=== PATIENT | male | born 1995 | race Caucasian/White ===

== ENCOUNTER 2018-06-27 02:36 | Emergency (ER) | payer OTHER ==
[~2018-06-27] VITALS: Ht 170.2 cm; Wt 63.8 kg
[~2018-06-27 02:36] MED LIST: HMLI SC; INSDGI SC
[2018-06-27 02:41] VITALS: TEMP 36.7; Ht 170.2 cm; Wt 63.8 kg
[2018-06-27] MEDS ORDERED: INSULIN 70% ASPART PROTAMINE/30% ASPART SC ONE (03:15)
[2018-06-27] MEDS ORDERED: INSU100I23 SQ (03:31)
[2018-06-27] MEDS ORDERED: HMLIS SQ (03:31)
[2018-06-27 04:07] VITALS: BP 154/100; PULSE 109; O2SAT 96
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
== END 2018-06-27 04:06 | disposition home or self-care (01) ==
LOC: C.EDB 02:39 → MERGE 02:39 → C.EDB 04:06
DX: T76.11XA Adult physical abuse, suspected, initial encounter (principal); S69.92XA Unspecified injury of left wrist, hand and finger(s), initial encounter; W50.0XXA Accidental hit or strike by another person, initial encounter; E10.65 Type 1 diabetes mellitus with hyperglycemia; R40.2412 Glasgow coma scale score 13-15, at arrival to emergency department; Z79.4 Long term (current) use of insulin

== ENCOUNTER 2019-08-12 21:34 | Inpatient (IN) ==
[2019-08-12 22:53] LABS: Basophils # (auto) 0.04 K/uL (0-0.2); Basophils % (auto) 0.5 %; Eosinophils # (auto) 0.07 K/uL (0-0.5); Eosinophils % (auto) 0.8 %; Hematocrit (blood only) 43.3 % (42-52); Hemoglobin 14.3 g/dL (14.0-18.0); Immature Granulocytes # (auto) 0.04 K/uL (0.00-0.02); Immature Granulocytes % (auto) 0.5 %; Lymphocytes # (auto) 2.62 K/uL (1.2-3.4); Lymphocytes % (auto) 31.6 %; Mean Corpuscular Hemoglobin 30.8 pg (25-34); Mean Corpuscular Volume 93.1 fL (80-100); Mean Platelet Volume 10.5 fL (7.4-10.4); Monocytes # (auto) 0.64 K/uL (0.11-0.59); Monocytes % (auto) 7.7 %; Neutrophils # (auto) 4.87 K/uL (1.4-6.5); Neutrophils % (auto) 58.9 %; Platelet Count 248 K/uL (130-400); RDW Coefficient of Variation 13.5 % (11.5-14.5); RDW Standard Deviation 45.9 fL (36.4-46.3); Red Blood Count 4.65 M/uL (4.7-6.1); White Blood Count 8.28 K/uL (4.8-10.8)
[2019-08-12] MEDS ORDERED: SODIUM CHLORIDE 0.9% 1000ML 1,000 ML IV ONE ×2 (23:06→23:31)
[2019-08-12 23:30] LABS: Albumin Level 3.8 gm/dl (3.4-5.0); BUN Creatinine Ratio 15.5 (10-20); Calcium 9.3 mg/dl (8.5-10.1); Creatinine Clr Calc Pharmacy 68.4 ml/min; Est GFR (Non-African American) 61.2; Globulin 3.8 gm/dl (2.5-4.0); Total Protein 7.6 gm/dl (6.4-8.2)
[2019-08-13 00:28] LABS: iSTAT Blood Urea Nitrogen 27 mg/dl (7-18); iSTAT Carbon Dioxide 22 mEq/l (24-31); iSTAT Chloride 94 mEq/L (101-112); iSTAT Creatinine 1.2 mg/dl (0.6-1.3); iSTAT Glucose > 700 mg/dl (70-99); iSTAT Hematocrit 43 % (42-52); iSTAT Hemoglobin 14.6 g/dl (14.0-18.0); iSTAT Ionized Calcium 1.19 mmol/l (1.12-1.32); iSTAT Potassium 5.6 mEq/L (3.3-5.0); iSTAT Sodium 128 mEq/L (135-144)
[2019-08-13] MEDS ORDERED: LORazepam 1 MG/2 ML VIAL IV STA (00:41)
[2019-08-13] MEDS ORDERED: INSULIN REGULAR 250 UNITS in SODIUM CHLORIDE 0.9% 247.5 ML IV SCH (00:45)
[2019-08-13 00:59] LABS: Beta-Hydroxybutyrate 27.02 mg/dl (0.2-2.81)
--- NOTE | 2019-08-13 01:37 | Emergency Department Note ---
Entered by Anita Roca acting as a scribe for Lakeisha Samayoaer History of Present Illness General Chief complaint: Vomiting Stated complaint: VOMITING, INCREASED BATHROOM VISITS Time Seen by Provider: 08/12/19 22:44 Source: patient History of Present Illness Onset (ago): hour(s) 10 Pain Consistency: + constant Maximum Pain Intensity: 8 Current Pain Intensity: 8 Associated symptoms: + nausea/vomiting, + weakness and + other (increased urinary frequency); no fever/chills Treatments prior to arrival: none The patient is a 23 year old male with diabetes who presents to the Emergency Room with complaints of vomiting. 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 He ran out today, with his last dose taken around 14:00 today. He typically takes 12-16 units of insulin, and 26 units of Lantus at night. The patient complains of increased urination, weakness, and vomiting. He states that he did not notice any blood in his vomit, and denies fever. Home Medications Home Medications Medication Instructions Recorded Confirmed Type divalproex 500 mg PO BID 08/12/19 08/12/19 History paliperidone 6 mg PO QAM 08/12/19 08/12/19 History insulin glargine [Basaglar KwikPen 36 unit SUBCUT DAILY 08/13/19 08/13/19 History U-100 Insulin] Allergies Allergy/AdvReac Type Severity Reaction Status Date / Time No Known Allergies Allergy Unverified 08/12/19 23:58 Past Med/Surg History Medical History DM I (diabetes mellitus, type I) Surgical History No pertinent past surgical history Family History Father Hypertension Brother Type I diabetes mellitus Social History Preferred Language: Yakut Communication Ability: Effective Visual Impairment: No Limitations Hearing Ability: Normal Bromination Equipment Operator Required: No Beliefs That Will Affect Care: Hoahaoism Hoahaoism Beliefs: Jain marital status: single Current Living Situation: Alone current occupational status: student Feels Safe at Home: Yes Smoking Status: Current every day smoker Hx Alcohol Use: Yes Hx Substance Use: Yes Review of Systems See HPI for pertinent positives & negatives. and A total of 10 systems reviewed and were otherwise negative Physical Exam Vital Signs Vital Signs - 24 hr 08/12/19 21:41 08/12/19 23:35 Temperature 36.8 C Temperature Source Oral Sepsis Recent Fever Within 48 Hours No Sepsis New/Unexplained Change in Mental Status No Sepsis Action Taken by Nursing No Action Required Pulse Rate 105 H Pulse Rate [Apical] 97 H Respiratory Rate 16 20 Respiratory Effort / Characteristics Non-Labored Spontaneous Respiratory Depth Normal Blood Pressure 168/81 H Blood Pressure [Left Arm] 156/100 H Blood Pressure Mean 110 Blood Pressure Mean [Left Arm] 118 Pulse Oximetry 97 99 Oxygen Delivery Method Room Air Room Air Physical Exam GENERAL: He is oriented to person, place, and time. He appears well-developed and well-nourished. He does not appear distressed. ____ HENT: Exam performed. - Head: Normocephalic and atraumatic. - Right Ear: External ear normal. No mastoid tenderness. - Left Ear: External ear normal. No mastoid tenderness. - Mouth/Throat: The oropharynx is clear and moist. No trismus in the jaw. No dental abscesses or uvula swelling. No oropharyngeal exudate or tonsillar abscesses. ____ EYES: Conjunctivae and EOM are normal. Pupils are equal, round, and reactive to light. Right eye exhibits no discharge. Left eye exhibits no discharge. No scleral icterus. ____ NECK: Normal range of motion. Neck supple. No JVD present. No spinous process tenderness present. No carotid bruit present. No rigidity. No tracheal deviation and normal range of motion present. No Brudzinski's sign and no Kernig's sign noted. ____ CV: Tachycardic rate, regular rhythm, normal heart sounds and intact distal pulses. There is no peripheral edema. Palpable radial pulses bue. ____ PULM/CHEST: Effort normal and breath sounds normal. No respiratory distress. No stridor. He has no wheezes. He has no rales. - Chest Wall: He exhibits no tenderness. ____ ABD: The abdomen is soft. Bowel sounds are normal. He has no distension. No mass is present. There is no tenderness. There is no rebound, no guarding, no Hooper's sign and no tenderness at McBurney's point. Rovsig negative MUSC/SKEL: Normal range of motion. There is no peripheral edema, tenderness or deformity. LYMPH: No cervical adenopathy. ____ NEURO: He is alert and oriented to person, place, and time. He has normal strength. No cranial nerve deficit or sensory deficit. Coordination and gait normal. GCS eye subscore is 4. GCS verbal subscore is 5. GCS motor subscore is 6. cerbellar tests wnl. ____ SKIN: Skin is warm and dry. He is not diaphoretic. ____ PSYCH: He has a normal mood and affect. His behavior is normal. Judgment and thought content normal. ____ Course 2235: Past medical records reviewed. The patient was evaluated in room B09. A complete history and physical exam was performed. 0035: Vital signs stable. Labs show a serum glucose of 783. Sodium 127. Potassium 5.6. Creatinine 1.57. Beta hydroxy acid 27.02. Serum osmolality 321. Calculated osmolality [(2*127) + (24/2.8) + (783/18)] is 305, osmolar gap of 16. Patient is in [facility]. Patient be started on insulin drip. Spoke with pharmacy and asked him to create a 0.1 units/kg/h drip which they placed the order for. I spoke to Dr. Arita, [facility] hospitalist, who agreed to further evaluate the patient. Administered Medications Sodium Chloride (Nss 1000ml) 1,000 mls @ 200 mls/hr IV .Q5H ONE Stop: 08/13/19 04:05 Last Infusion: 08/13/19 00:40 Dose: 0 mls/hr Documented by: [id number] Admin: 08/12/19 22:50 Dose: 200 mls/hr Documented by: [id number] Insulin Human Regular 250 (units/ Sodium Chloride) 250 mls @ 7 mls/hr IV .Q24H [facility]; Protocol Stop: 09/12/19 00:44 Last Admin: 08/13/19 00:55 Dose: 7 units/hr, 7 mls/hr Documented by: [id number] Cosigned by: [id number] Discontinued Medications Sodium Chloride (Nss 1000ml) 1,000 mls @ 999 mls/hr IV .Q1H1M ONE Stop: 08/13/19 00:31 Last Infusion: 08/13/19 00:40 Dose: 0 mls/hr Documented by: [id number] Admin: 08/12/19 23:42 Dose: 999 mls/hr Documented by: [id number] Medical Decision Making Medical Records Attestation: I reviewed the patient's medical records. Home Medications Current Medication List: was personally reviewed by me Laboratory Data Attestation: I reviewed the patient's lab results. Result diagrams: 08/12/19 22:36 08/12/19 22:36 Lab Results 08/12/19 08/12/19 08/12/19 Range/Units 22:31 22:32 22:36 WBC 8.28 (4.8-10.8) K/uL RBC 4.65 L (4.7-6.1) M/uL Hgb 14.3 (14.0-18.0) g/dL POC Hgb (14.0-18.0) g/dl Hct 43.3 (42-52) % POC Hct (42-52) % MCV 93.1 (80-100) fL MCH 30.8 (25-34) pg MCHC 33.0 (32-36) g/dL RDW Std Deviation 45.9 (36.4-46.3) fL RDW Coeff of Arthur 13.5 (11.5-14.5) % Plt Count 248 (130-400) K/uL MPV 10.5 H (7.4-10.4) fL Immature Gran % (Auto) 0.5 % Neut % (Auto) 58.9 % Lymph % (Auto) 31.6 % Jack % (Auto) 7.7 % Eos % (Auto) 0.8 % Baso % (Auto) 0.5 % Immature Gran # (Auto) 0.04 H (0.00-0.02) K/uL Neut # (Auto) 4.87 (1.4-6.5) K/uL Lymph # (Auto) 2.62 (1.2-3.4) K/uL Jack # (Auto) 0.64 H (0.11-0.59) K/uL Eos # (Auto) 0.07 (0-0.5) K/uL Baso # (Auto) 0.04 (0-0.2) K/uL POC Sodium (135-144) mEq/L Sodium (136-145) mmol/L POC Potassium (3.3-5.0) mEq/L Potassium (3.5-5.1) mmol/L POC Chloride (101-112) mEq/L Chloride (98-107) mmol/L Carbon Dioxide (21-32) mmol/L POC Total CO2 (24-31) mEq/l Anion Gap (3-11) POC Anion Gap (16-25) mmol/L POC BUN (7-18) mg/dl BUN (7-18) mg/dl Creatinine (0.6-1.4) mg/dl POC Creatinine (0.6-1.3) mg/dl Est Cr Clr Drug Dosing ml/min Est GFR ( Amer) Est GFR (Non-Af Amer) BUN/Creatinine Ratio (10-20) Glucose (70-99) mg/dl POC Glucose > 600 H* > 600 H* (70-99) POC Glucose (other) (70-99) mg/dl Osmolality (280-300) mOsm/kg Calcium (8.5-10.1) mg/dl POC Ioniz Calcium Kaye (1.12-1.32) mmol/l Total Bilirubin (0.2-1) mg/dl AST (15-37) U/L ALT (12-78) U/L Alkaline Phosphatase (45-117) U/L Total Protein (6.4-8.2) gm/dl Albumin (3.4-5.0) gm/dl Globulin (2.5-4.0) gm/dl Albumin/Globulin Ratio (0.9-2) Beta-Hydroxybutyric Acd (0.2-2.81) mg/dl 08/12/19 08/12/19 08/12/19 Range/Units 22:36 23:41 23:41 WBC (4.8-10.8) K/uL RBC (4.7-6.1) M/uL Hgb (14.0-18.0) g/dL POC Hgb (14.0-18.0) g/dl Hct (42-52) % POC Hct (42-52) % MCV (80-100) fL MCH (25-34) pg MCHC (32-36) g/dL RDW Std Deviation (36.4-46.3) fL RDW Coeff of Arthur (11.5-14.5) % Plt Count (130-400) K/uL MPV (7.4-10.4) fL Immature Gran % (Auto) % Neut % (Auto) % Lymph % (Auto) % Jack % (Auto) % Eos % (Auto) % Baso % (Auto) % Immature Gran # (Auto) (0.00-0.02) K/uL Neut # (Auto) (1.4-6.5) K/uL Lymph # (Auto) (1.2-3.4) K/uL Jack # (Auto) (0.11-0.59) K/uL Eos # (Auto) (0-0.5) K/uL Baso # (Auto) (0-0.2) K/uL POC Sodium (135-144) mEq/L Sodium 127 L (136-145) mmol/L POC Potassium (3.3-5.0) mEq/L Potassium Cancelled (3.5-5.1) mmol/L POC Chloride (101-112) mEq/L Chloride 92 L (98-107) mmol/L Carbon Dioxide 24 (21-32) mmol/L POC Total CO2 (24-31) mEq/l Anion Gap 11.0 (3-11) POC Anion Gap (16-25) mmol/L POC BUN (7-18) mg/dl BUN 24 H (7-18) mg/dl Creatinine 1.57 H (0.6-1.4) mg/dl POC Creatinine (0.6-1.3) mg/dl Est Cr Clr Drug Dosing 68.4 ml/min Est GFR ( Amer) 71.0 Est GFR (Non-Af Amer) 61.2 BUN/Creatinine Ratio 15.5 (10-20) Glucose 783 H* (70-99) mg/dl POC Glucose (70-99) POC Glucose (other) (70-99) mg/dl Osmolality 321 H (280-300) mOsm/kg Calcium 9.3 (8.5-10.1) mg/dl POC Ioniz Calcium Kaye (1.12-1.32) mmol/l Total Bilirubin 1.0 (0.2-1) mg/dl AST Cancelled (15-37) U/L ALT 21 (12-78) U/L Alkaline Phosphatase 80 (45-117) U/L Total Protein 7.6 (6.4-8.2) gm/dl Albumin 3.8 (3.4-5.0) gm/dl Globulin 3.8 (2.5-4.0) gm/dl Albumin/Globulin Ratio 1.0 (0.9-2) Beta-Hydroxybutyric Acd Cancelled (0.2-2.81) mg/dl 08/13/19 08/13/19 Range/Units 00:12 00:12 WBC (4.8-10.8) K/uL RBC (4.7-6.1) M/uL Hgb (14.0-18.0) g/dL POC Hgb 14.6 (14.0-18.0) g/dl Hct (42-52) % POC Hct 43 (42-52) % MCV (80-100) fL MCH (25-34) pg MCHC (32-36) g/dL RDW Std Deviation (36.4-46.3) fL RDW Coeff of Arthur (11.5-14.5) % Plt Count (130-400) K/uL MPV (7.4-10.4) fL Immature Gran % (Auto) % Neut % (Auto) % Lymph % (Auto) % Jack % (Auto) % Eos % (Auto) % Baso % (Auto) % Immature Gran # (Auto) (0.00-0.02) K/uL Neut # (Auto) (1.4-6.5) K/uL Lymph # (Auto) (1.2-3.4) K/uL Jack # (Auto) (0.11-0.59) K/uL Eos # (Auto) (0-0.5) K/uL Baso # (Auto) (0-0.2) K/uL POC Sodium 128 L (135-144) mEq/L Sodium (136-145) mmol/L POC Potassium 5.6 H (3.3-5.0) mEq/L Potassium (3.5-5.1) mmol/L POC Chloride 94 L (101-112) mEq/L Chloride (98-107) mmol/L Carbon Dioxide (21-32) mmol/L POC Total CO2 22 L (24-31) mEq/l Anion Gap (3-11) POC Anion Gap 19.0 (16-25) mmol/L POC BUN 27 H (7-18) mg/dl BUN (7-18) mg/dl Creatinine (0.6-1.4) mg/dl POC Creatinine 1.2 (0.6-1.3) mg/dl Est Cr Clr Drug Dosing ml/min Est GFR ( Amer) Est GFR (Non-Af Amer) BUN/Creatinine Ratio (10-20) Glucose (70-99) mg/dl POC Glucose (70-99) POC Glucose (other) > 700 H* (70-99) mg/dl Osmolality (280-300) mOsm/kg Calcium (8.5-10.1) mg/dl POC Ioniz Calcium Kaye 1.19 (1.12-1.32) mmol/l Total Bilirubin (0.2-1) mg/dl AST 11 L (15-37) U/L ALT (12-78) U/L Alkaline Phosphatase (45-117) U/L Total Protein (6.4-8.2) gm/dl Albumin (3.4-5.0) gm/dl Globulin (2.5-4.0) gm/dl Albumin/Globulin Ratio (0.9-2) Beta-Hydroxybutyric Acd 27.02 H (0.2-2.81) mg/dl Blood Pressure Blood Pressure Findings: Elevated blood pressure Blood Pressure Disposition: further management by hospitalist [facility] Narrative Vital signs stable. Labs show a serum glucose of 783. Sodium 127. Potassium 5.6. Creatinine 1.57. Beta hydroxy acid 27.02. Serum osmolality 321. Calculated osmolality [(2*127) + (24/2.8) + (783/18)] is 305, osmolar gap of 16. Patient is in [facility]. Patient be started on insulin drip. Spoke with pharmacy and asked him to create a 0.1 units/kg/h drip which they placed the order for. I spoke to Dr. Arita, [facility] hospitalist, who agreed to further evaluate the patient. Impression & Plan HHNC (hyperglycemic hyperosmolar nonketotic coma), CAROL ANN (acute kidney injury) Critical Care Time Critical Care Time: Yes Total Critical Care Time: 73 I have personally spent 73 minutes of critical care time in the direct management of this patient. This includes bedside care, interpretation of diagnostic studies, and testing, discussion with consultants, patient, and family members, and other required patient management activities. This 73 minutes is in excess of all separately billable procedures. Discharge Plan Visit Data Chief Complaint: Vomiting Stated Complaint: VOMITING, INCREASED BATHROOM VISITS ED Provider: Adam Samayoa Discharge Problem: HHNC (hyperglycemic hyperosmolar nonketotic coma), CAROL ANN (acute kidney injury) Forms Stand Alone Forms: [facility] Prescriptions Prescriptions: No Action divalproex 500 mg Tablet Extended Release 24 Hr 500 mg PO BID RF: 0 paliperidone 6 mg Tablet Extended Release 24hr 6 mg PO QAM RF: 0 Basaglar KwikPen U-100 Insulin 100 unit/mL (3 mL) Insulin Pen 36 unit SUBCUT DAILY RF: 0 Referrals Referrals: [place] [Primary Care Provider] - The scribe's documentation has been prepared under my direction and personally reviewed by me in its entirety. I confirm that the note above accurately reflects all work, treatment, procedures, and medical decision making performed by me.
--- NOTE | 2019-08-13 01:43 | History & Physical Report ---
Date of Service August 13, 2019 Assessment & Plan (1) HHNC (hyperglycemic hyperosmolar nonketotic coma): Mr. Chilel is a 23-year-old man with a past medical history of diabetes mellitus type 1 and bipolar disorder who presents to the emergency department due to elevated blood sugar readings. ED Course: 1L normal saline bolus, 1 L normal saline at 200 mLs/hr, insulin drip -admit to telemetry -BSG on presentation to ED was 783, no anion gap present. Beta hydroxybutyric acid 27 -secondary to pt running out of insulin -insulin drip initiated in ED, will continue this per protocol until BSGs are in 250-350 range -continue IVF with NS at 200 mls/hr -q1h BSG and q4h BMP, will add phosphate levels to next lab draw Hyponatremia -sodium 127 on admission, likely related to HHS -continue to monitor Hyperkalemia -potassium 5.6, anticipate drop w/insulin drip - may require potassium replacement -placed on circuit court clerk Acute Kidney Injury -Cr on admission 1.57, likely related to hypovolemia in setting of HHS -continue aggressive IVF and trend BMP Bipolar Disorder -continue home divalproex and paliperidone Tobacco abuse -cessation advised -nicotine patch ordered Code status: FULL DVT Prophylaxis: Low risk, encourage ambulation Disposition: admit to telemetry. Pt states he has a flight he wants to make on Monday, and is very insistent on being discharged later today (08/13) (2) CAROL ANN (acute kidney injury): (3) [place]: (4) Hyponatremia: (5) Hyperkalemia: History of Present Illness Chief Complaint: Elevated blood sugar Primary Care Provider: [facility] Mr. Chilel is a 23-year-old man with a past medical history of diabetes mellitus type 1 and bipolar disorder who presents to the emergency department du e to elevated blood sugar readings. He states that he ran out of insulin yesterday, and his elevated blood sugar readings prompted him to come to the emergency department. He denies any associated symptoms such as abdominal pain, nausea, vomiting, diarrhea. He denies fever or chills, but reports a 2-day history of rhinorrhea and a sore throat. He denies a cough or shortness of breath. With regards to his diabetes mellitus, he states he follows with [facility]. He reports taking 36 units of long-acting insulin every evening, and 12-16 units of fast acting insulin 3 times a day. He states he has not eaten anything out of the ordinary to prompt his elevated blood sugar readings. Past medical history: Diabetes mellitus type 1, bipolar disorder Past surgical history: nil of note Medications: Divalproex, insulin, paliperidone Allergies: No drug allergies Social history: From [facility]. Smokes daily. Denies alcohol use. Reports smoking marijuana recreationally. States that he has tried a number of recreational drugs, however does not wish to divulge which ones. Allergies Allergy/AdvReac Type Severity Reaction Status Date / Time No Known Allergies Allergy Unverified 08/12/19 23:58 Home Medications Home Medications Medication Instructions Recorded Confirmed Type divalproex 500 mg PO BID 08/12/19 08/12/19 History paliperidone 6 mg PO QAM 08/12/19 08/12/19 History insulin glargine [Basaglar KwikPen 36 unit SUBCUT DAILY 08/13/19 08/13/19 History U-100 Insulin] Past Med/Surg History Medical History DM I (diabetes mellitus, type I) Surgical History No pertinent past surgical history Family History Father Hypertension Brother Type I diabetes mellitus Social History Preferred Language: German Communication Ability: Effective Visual Impairment: No Limitations Hearing Ability: Normal Hides Soaker Required: No Beliefs That Will Affect Care: None marital status: single Current Living Situation: Other current occupational status: student Other Information That Helps Us Care for You: No Feels Safe at Home: Yes Safety Concerns: Feels Safe At This Time Smoking Status: Unknown if ever smoked Hx Alcohol Use: No Hx Substance Use: No Review of Systems Constitutional: no fever and no chills Ear, Nose, Mouth, Throat: + nasal congestion and + sore throat Respiratory: no cough, no dyspnea and no wheezing Cardiovascular: no chest pain, no palpitations, no syncope, no edema and no calf pain Gastrointestinal: no abdominal pain, no nausea, no vomiting and no change in bowel habits Physical Exam Constitutional: WD/WN, vitals as above comfortable Eyes: PERRL, conjunctivae normal, anicteric sclerae ENMT: external ear and nose normal, oropharynx normal Respiratory: normal respiratory effort, lungs clear to auscultation Cardiovascular: RRR, no murmur, no edema Gastrointestinal (Abdomen): normal bowel sounds, soft, nontender, no hepatosplenomegaly Skin: no rashes, warm and dry Results & Data Vital Signs (Past 12 Hours) Vital Signs Temp Pulse Pulse Resp BP BP Pulse Ox 08/12/19 23:35 97 H 20 156/100 H 99 08/12/19 21:41 36.8 C 105 H 16 168/81 H 97 Code Status & VTE Plan VTE Prophylaxis Plan VTE Prophylaxis will be ordered: No Supervising Physician Co-Signing Physician Notes Patient was seen and examined by me personally. I reviewed the chart, the orders and discussed the case in detail with Dr. Dheeraj Marino MD . I read this H&P and agree with its contents to entirety. PG Care Time/CCT Total # of Minutes Spent Total Time Spent with Patient: Total time spent is greater than 50% in coordination of care (as documented) at patient's floor/unit and/or counseling patient: Resident Activity Tracking Resident Involvement: Resident Care Provided Care Provided: Adult Hospital Medicine
[2019-08-13] MEDS ORDERED: ACETAMINOPHEN 325 MG TAB PO PRN (01:49)
[2019-08-13] MEDS ORDERED: GLUCOSE 40% GEL 15 GM TUBE PO PRN (02:00)
[2019-08-13] MEDS ORDERED: CARBOHYDRATES FOR HYPOGLYCEMIA PO PRN (02:00)
[2019-08-13] MEDS ORDERED: GLUCAGON FOR INJ 1 MG VIAL IM PRN (02:00)
[2019-08-13] MEDS ORDERED: GLUCOSE 10 TABS/TUBE PO PRN (02:00)
[2019-08-13] MEDS ORDERED: DEXTROSE 50% 50 ML SYRINGE IV PRN (02:00)
[2019-08-13 03:10] LABS: BUN Creatinine Ratio 18.4 (10-20); Calcium 8.8 mg/dl (8.5-10.1); Creatinine Clr Calc Pharmacy 72.1 ml/min; Est GFR (African American) 75.6; Est GFR (Non-African American) 65.2; Phosphorus 2.5 mg/dl (2.5-4.9)
[2019-08-13 03:23] LABS: Beta-Hydroxybutyrate 13.25 mg/dl (0.2-2.81)
[2019-08-13] MEDS ORDERED: SODIUM CHLORIDE 0.9% 1000ML 1,000 ML IV SCH (04:15)
[2019-08-13] MEDS ORDERED: D5W AND NSS 1,000 ML IV SCH (04:30)
[2019-08-13 07:13] LABS: BUN Creatinine Ratio 22.1 (10-20); Calcium 8.7 mg/dl (8.5-10.1); Creatinine Clr Calc Pharmacy 100.4 ml/min; Est GFR (African American) 112.8; Est GFR (Non-African American) 97.3; Potassium 3.4 mmol/L (3.5-5.1)
[2019-08-13] MEDS ORDERED: INSULIN ASPART 100 UNITS/ML 3 ML PEN SC SCH ×3 (07:30→16:30)
[2019-08-13] MEDS ORDERED: INFLUENZA VIRUS QUAD VACCINE 0.5 ML SYR IM ONE (08:00)
[2019-08-13] MEDS ORDERED: INFLUENZA ADMINISTRATION CHARGE ONE (08:00)
[2019-08-13] MEDS ORDERED: DIVALPROEX EXTENDED RELEASE 500 MG TAB PO SCH (09:00)
[2019-08-13] MEDS ORDERED: PALIPERIDONE 3 MG TABCR PO SCH (09:00)
[2019-08-13] MEDS ORDERED: NICOTINE 14 MG/24 HR PATCH TD SCH (09:00)
[2019-08-13] MEDS ORDERED: PHARMACY GLYCEMIC MGMT CONSULT PRN (09:39)
[2019-08-13] MEDS ORDERED: INSULIN GLARGINE SOLOSTAR 100 UNITS/ML 3 ML PEN SC STA (10:55)
[2019-08-13 11:12] LABS: BUN Creatinine Ratio 21.2 (10-20); Calcium 8.7 mg/dl (8.5-10.1); Creatinine Clr Calc Pharmacy 107.4 ml/min; Est GFR (African American) 122.4; Est GFR (Non-African American) 105.6; Potassium 4.1 mmol/L (3.5-5.1)
--- NOTE | 2019-08-13 14:32 | Pharmacy Report ---
Glycemic Control Consultation - Date of Service August 13, 2019 - Scope Scope: Glycemic Pharmacist consulted by Dr Tillman on 08/13/19 for glycemic control and to write orders per [facility] inpatient glycemic control protocol - Objective Weight: 73 kg Accuchecks BSG (last 24hrs): 08/12/19 08/12/19 08/12/19 22:31 22:32 22:36 Glucose 783 H* POC Glucose > 600 H* > 600 H* POC Glucose (other) 08/13/19 08/13/19 08/13/19 00:12 01:53 02:35 Glucose 520 H* POC Glucose 519 H* POC Glucose (other) > 700 H* 08/13/19 08/13/19 08/13/19 02:37 02:56 03:56 Glucose POC Glucose 481 H* 480 H* 358 H* POC Glucose (other) 08/13/19 08/13/19 08/13/19 04:52 06:21 06:28 Glucose 289 H POC Glucose 260 H 312 H* POC Glucose (other) 08/13/19 08/13/19 08/13/19 07:27 08:21 10:20 Glucose 268 H POC Glucose 280 H 259 H POC Glucose (other) 08/13/19 08/13/19 10:33 12:42 Glucose POC Glucose 240 H 198 H POC Glucose (other) Laboratory Data (last 24hrs): 08/12/19 08/12/19 08/12/19 22:36 23:41 23:41 Potassium Cancelled Carbon Dioxide 24 Anion Gap 11.0 Creatinine 1.57 H Est Cr Clr Drug Dosing 68.4 Osmolality 321 H Beta-Hydroxybutyric Acd Cancelled 08/13/19 08/13/19 08/13/19 00:12 02:35 06:21 Potassium 4.0 3.4 L Carbon Dioxide 24 26 Anion Gap 13.0 H 10.0 Creatinine 1.49 H 1.07 Est Cr Clr Drug Dosing 72.1 100.4 Osmolality Beta-Hydroxybutyric Acd 27.02 H 13.25 H 08/13/19 10:20 Potassium 4.1 D Carbon Dioxide 26 Anion Gap 8.0 Creatinine 1.00 Est Cr Clr Drug Dosing 107.4 Osmolality Beta-Hydroxybutyric Acd - Recent Pertinent Medications Outpatient Anti-diabetic Regimen: * Basaglar 26 units daily * Humalog 12-16 units TID * A1c = 11.1 % 09/05/2018 * A1c ordered for 08/14/19 with am labs Risk Factors for Insulin Resistance: * Diet: T1DM/CC - Assessment & Plan Assessment & Plan: ASSESSMENT: * 23 year old male with T1DM and h/o bipolar disorder, admitted for severe hyperglycemia. * Upon admission anion gap and CO2 WNL. Based on calculated effective osmolality of 319 pt is boarderline but does not meet criteria for HHS. Pt also does not meet criteria for DKA. * Med rec states pt takes 36 units of Basaglar daily. ER note states he takes 26 units of basaglar daily. Based on A1c from last year, would suspect adherence to be an issue. Pt reports that he ran out of insulin yesterday afternoon. BSG on admission was 783 mg/dL. * Pt was started on a drip around midnight today. Pharmacy consulted to manage transition from drip to basal/bolus regimen. * IV fluids discontinued. Diet ordered for lunchtime today. * Lantus and sliding scale regimen based on previous admission data. * BSG's trended from 783 to 198 mg/dL in the last 14 hours. * Ordered Lantus dose to be given around lunchtime. Lantus scale added for bedtime bsg check. * Sliding scale insulin to begin at dinner bsg check. PLAN FOR INPATIENT GLYCEMIC CONTROL: * Discontinue insulin drip approximately 6 hours after Lantus dose administered (~1700). * Basal insulin * Lantus 20 units SQ @1200 * Lantus 5 units if bsg greater than 180 mg/dL 0 units if bsg 180 mg/dL or less. * Bolus insulin * NovoLog per scale ACHS or Q6hrs while NPO * Goal Range: Low 120 mg/dL - High 150 mg/dL * Correction Factor: 35 mg/dL/unit * Nutritional / Prandial insulin per carb ratio of 1 unit per 12 grams CHO consumed * Overnight checks ordered * Please note that the plan above was derived based on current level of insulin resistance and hospital stress. These recommendations are appropriate for inpatient admission only. Plan of care upon discharge will need to be reassessed to avoid potential outpatient hypo/hyperglycemia. Thank you.
[2019-08-13] MEDS ORDERED: DC IV INSULIN INFUSION 1 EA DEVI ONE (17:00)
--- NOTE | 2019-08-13 17:34 | Discharge Summary ---
Date of Service August 13, 2019 Admission HPI Per Admitting Provider Mr. Chilel is a 23-year-old man with a past medical history of diabetes mellitus type 1 and bipolar disorder who presents to the emergency department due to elevated blood sugar readings. He states that he ran out of insulin yesterday, and his elevated blood sugar readings prompted him to come to the emergency department. He denies any associated symptoms such as abdominal pain, nausea, vomiting, diarrhea. He denies fever or chills, but reports a 2-day history of rhinorrhea and a sore throat. He denies a cough or shortness of breath. With regards to his diabetes mellitus, he states he follows with [facility]. He reports taking 36 units of long-acting insulin every evening, and 12-16 units of fast acting insulin 3 times a day. He states he has not eaten anything out of the ordinary to prompt his elevated blood sugar readings. Past medical history: Diabetes mellitus type 1, bipolar disorder Past surgical history: nil of note Medications: Divalproex, insulin, paliperidone Allergies: No drug allergies Social history: From [facility]. Smokes daily. Denies alcohol use. Reports smok ing marijuana recreationally. States that he has tried a number of recreational drugs, however does not wish to divulge which ones. Admission Exam Per Admitting Provider Constitutional: WD/WN, vitals as above comfortable Eyes: PERRL, conjunctivae normal, anicteric sclerae ENMT: external ear and nose normal, oropharynx normal Respiratory: normal respiratory effort, lungs clear to auscultation Cardiovascular: RRR, no murmur, no edema Gastrointestinal (Abdomen): normal bowel sounds, soft, nontender, no hepat osplenomegaly Skin: no rashes, warm and dry Principal Diagnosis Hyperglycemia due to lack of insulin with ketosis without acidosis CAROL ANN Discharge Exam Constitutional WD/WN, vitals as above comfortable Eyes PERRL, conjunctivae normal, anicteric sclerae ENMT external ear and nose normal, oropharynx normal Respiratory normal respiratory effort, lungs clear to auscultation Cardiovascular RRR, no murmur, no edema Gastrointestinal (Abdomen) normal bowel sounds, soft, nontender, no hepatosplenomegaly Skin no rashes, warm and dry Discharge Data Allergies Allergy/AdvReac Type Severity Reaction Status Date / Time No Known Allergies Allergy Unverified 08/12/19 23:58 Consultations 08/13/19 00:28 ED Decision to Admit Stat Hospital Course (1) Hyperglycemia: secondary to lack of insulin as he left his insulin in [place] and ran out. When he called up for a refill if was too expensive as his refill was too early. He was quickly transitioned back to his usual home regimen. No neurological findings. Insulin pens given on discharge and advised to call hospital and connect to [facility] hospitalist group if any issues in the next few days however he reports he will be going back to [place] on a flight back tomorrow morning and already has established with physicians back there where he also has his usual insulin supply. Also discussed switching temporarily to 70/30 Novolin at [facility] in an emergency but recommend he does this with physician guidance. (2) Ketosis: No acidosis on venous labs (3) Diabetes type I: No change to chronic outpatient insulin (4) CAROL ANN (acute kidney injury): Resolved with IV fluids. Total Time Total Time Spent Total Time Spent (In Minutes): 65 Total Time Includes: Examination of the Patient, Discharge Planning, Medication Reconciliation and Other (call pharmacies for prices) Discharge Plan Discharge Items Patient Disposition: Home - Self-Care Reason For Visit: ELEVATED BLOOD SUGAR Discharge Diagnosis: Hyperglycemia with diabetic ketosis (no acidosis) CAROL ANN - due to dehydration from high glucose values Condition on Discharge: Good Activity: Resume your previous activity Non-emergency contact: Primary Care Provider Call non-emergency contact if: you have any medication questions and your symptoms worsen Follow-up/Referrals: Olivia[facility] [Primary Care Provider] - Diet: Carb Count or DM1 Addtl Attending Provider Instructions: You were diagnosed with hyperglycemia due to lack of insulin with your diabetes type 1. This caused you to be dehydrated, with associated electrolyte abnormalities and have elevated ketones in your blood. You were treated with IV insulin and fluids and transitioned back to your usual insulin regimen. We have provided a paper prescription for 1 Basaglar and 1 Humalog pen if needed for emergencies. You should go back on your usual insulin regimen. If you lose your insurance and are unable to afford your insulin [facility] sell a 70/30 vial mix for approximately $25 which you take twice a day. I would always recommend discussing with your business controller if possible prior to using this however in an emergency convert your current total (humalog and basaglar) daily dose, reduce by 20% and divide in half (as given twice a day) as a rough conversion. Please follow up with your PCP and business controller in [place] for ongoing diabetes management. Pending Studies at Discharge: No Stand-Alone Forms: My [facility] Medications and DC Order Prescriptions: New insulin lispro [Humalog KwikPen Insulin] 100 unit/mL insulin pen See Rx Instructions .ROUTE .COMPLEX Qty: 3 RF: 0 Continued divalproex 500 mg Tablet Extended Release 24 Hr 500 mg PO BID RF: 0 paliperidone 6 mg Tablet Extended Release 24hr 6 mg PO QAM RF: 0 Changed Basaglar KwikPen U-100 Insulin 100 unit/mL (3 mL) Insulin Pen 25 unit SUBCUT DAILY Qty: 3 RF: 0 Discontinued Basaglar KwikPen U-100 Insulin 100 unit/mL (3 mL) Insulin Pen 36 unit SUBCUT DAILY RF: 0 Discharge Orders: Discharge Order (Routine); Ordered 08/13/19 Ordered By: Edgar Tillman Admission Data Admit Date/Time: 08/13/19 01:09 Attending Provider: Edgar Tillman Admit Provider: Dheeraj Marino Primary Care Provider: [facility] Other Providers: Pedrito Mares Other Interventions: Discharge Summary Assessment (RN) Last Done: 08/13/19 17:56 DC Date/Time DO NOT enter until pt leaves facility: 08/13/19 18:26
[2019-08-13] MEDS ORDERED: INSULIN GLARGINE SOLOSTAR 100 UNITS/ML 3 ML PEN SC ONE (21:00)
[2019-08-14] MEDS ORDERED: INSULIN ASPART 100 UNITS/ML 3 ML PEN SC SCH
== END 2019-08-13 18:26 | disposition home or self-care (01) | DRG 638 ==
LOC: ED 21:34 → SUATTDRO 08-13 01:09 → 1E 08-13 01:09 → 2S 08-13 14:49